=== PATIENT | male | born 1955 | race Caucasian/White ===

== ENCOUNTER 2025-01-04 11:58 | Emergency (ER) | payer MEDICARE, SELFPAY ==
--- NOTE | 2025-01-04 12:03 | EKG_ITS ---
[facility] Test Date: 2025-01-04 Pat Name: THUY SWAIN Department: Room: - Gender: Male Code Inspector: : [id number] Requested By: ED Temporary Provider Order Number: [id number] Reading MD: ED Temporary Provider Measurements Intervals [place] Rate: 75 P: 67 KS: 150 QRS: -50 QRSD: 169 T: 100 QT: 427 QTc: 480 Interpretive Statements SINUS RHYTHM POSSIBLE LEFT ATRIAL ENLARGEMENT [-0.1mV P-WAVE IN V1/V2] LEFT AXIS DEVIATION [QRS AXIS < -30] LEFT BUNDLE BRANCH BLOCK [120+ ms QRS DURATION, 80+ ms Q/S IN V1/V2, 85+ ms R IN I/aVL/V5/V6] Compared to ECG 02/29/2024 15:10:09 No significant changes /store/S0/[id number]/ecg/[id number].pdf
[2025-01-04 12:28] VITALS: BP 126/84; PULSE 77; RESP 17; TEMP 36.4; O2SAT 95
--- NOTE | 2025-01-04 12:34 | XR_ITS ---
Examination: PA lateral chest 2 views Technique: Upright PA lateral chest 2 views Date and time: January 04, 2025 1236 hrs. Indications: Coughing shortness of breath beginning 3 days ago. Findings: Normal heart size Moderate hyperexpansion. Suspicious for early right base pneumonia Impression: Suspicious for early right base pneumonia
--- NOTE | 2025-01-04 12:35 | PD.EDRME ---
Rapid Medical Screening Exam [facility] Arrival date/time: 01/04/25 11:58 This is a 69-year-old male comes into the emergency room complaints. Patient states he was given antibiotics, Rocephin shot yesterday and his primary doctor's office. Patient states that he did not feel better. Patient did not start outpatient p.o. treatment of antibiotics. Patient's reports that he feels severely malnourished and weak. He states that he thinks he needs IV therapy for hydration. Patient reports that over the past month he has lost about 35 pounds. I have greeted and performed a focused initial assessment of this patient. Initial appropriate labs ordered at this time. A comprehensive ED assessment and evaluation of the patient and analysis of all test and completion of medical decision making process will be conducted by additional ED provider. Chief Complaint: Flu Like Symptoms Time Seen by Provider: 01/04/25 12:09 Vital signs: Vital Signs Temperature 97.6 F 01/04/25 12:28 Pulse Rate 77 01/04/25 12:28 Respiratory Rate 17 01/04/25 12:28 Blood Pressure 126/84 01/04/25 12:28 Pulse Oximetry (%) 95 01/04/25 12:28 Oxygen Delivery Method Room Air 01/04/25 12:28
[2025-01-04 13:12] LABS: Lactate (Lactic Acid) 1.4 mMol/L (0.4-2.0)
[2025-01-04 13:14] LABS: Basophils # (Auto) 0.0 Thou/mm3 (0.0-0.2); Basophils % (Auto) 0 % (0-2.5); Eosinophils # (Auto) 0.1 Thou/mm3 (0.0-0.5); Eosinophils % (Auto) 1 % (0-10); Hematocrit 46.8 % (41.0-53.0); Hemoglobin 15.7 g/dL (13.5-16.0); Immature Granulocytes Auto 0.04 Thou/mm3 (0.00-0.00); Lymphocytes # (Auto) 0.9 Thou/mm3 (1.0-4.8); Lymphocytes % (Auto) 8 % (10-50); Mean Corpuscular HGB Conc 33.5 g/dl (31.0-37.0); Mean Corpuscular Hemoglobin 29.7 pg (25.0-35.0); Mean Corpuscular Volume 89 fL (80-100); Monocytes # (Auto) 1.0 Thou/mm3 (0.0-0.8); Monocytes % (Auto) 9 % (0-12); Neutrophils # (Auto) 9.0 Thou/mm3 (1.8-7.7); Neutrophils % (Auto) 81 % (37-80); Nucleated Red Blood Cell # 0.00 Thou/mm3 (0.00-0.00); Nucleated Red Blood Cell % 0 /100 WBC (0); Platelet Count 130 Thou/mm3 (140-440); RDW Standard Deviation 43.0 fL (35.1-43.9); Red Blood Count 5.28 Miln/mm3 (4.50-5.90); White Blood Count 11.1 Thou/mm3 (3.8-10.6)
[2025-01-04 13:57] LABS: Alanine Aminotransferase 9 U/L (10-49); Albumin, Serum 4.3 gm/dL (3.4-4.8); Albumin/Globulin Ratio 1.4 (1.2-2.2); Alkaline Phosphatase 80 U/L (46-116); Anion Gap 11 (7-16); Aspartate Amino Transferase 19 U/L (0-34); BUN/Creatinine Ratio 15 Ratio (12-20); Bilirubin,Total 0.8 mg/dL (0.3-1.2); Blood Urea Nitrogen 18 mg/dL (9-23); Calcium 9.1 mg/dL (8.3-10.6); Calcium (Corrected) 9.1 mg/dL (8.5-10.1); Carbon Dioxide 27.4 mMol/L (20.0-31.0); Chloride 103 mMol/L (98-107); Creatinine (Component) 1.2 mg/dL (0.6-1.3); Estimated Creatinine Clearance 51.4 mL/min (>60); Globulin 3.1 gm/dL (2.3-3.5); Glucose 104 mg/dL (74-106); Osmolality,Calculated 283 (275-295); Potassium 3.5 mMol/L (3.4-5.1); Procalcitonin 0.13 ng/ml (0.0-0.49); Sodium 141 mMol/L (136-145); Total Protein 7.4 gm/dL (5.7-8.2); eGFR > 60 See Note
[2025-01-04 15:31] VITALS: BP 100/70; PULSE 73; RESP 17; TEMP 36.3; O2SAT 98
--- NOTE | 2025-01-04 17:05 | PC.NURSE ---
called for pt from lobby/outside, no answerx1@ [id number]
--- NOTE | 2025-01-04 17:19 | PC.NURSE ---
called for pt from lobby/outside, no answerx2@ [id number]
--- NOTE | 2025-01-04 17:31 | PC.NURSE ---
called for pt from lobby/outside, no answer x3 @[phone]
== END 2025-01-04 17:52 | disposition left against medical advice (07) ==
PROVIDERS: Emergency Provider Nurse Practitioner Family
DX: R53.1 Weakness (principal); I44.7 Left bundle-branch block, unspecified; Z53.29 Procedure and treatment not carried out because of patient's decision for other reasons; R63.4 Abnormal weight loss; Z68.20 Body mass index [BMI] 20.0-20.9, adult
CPT/HCPCS: 36415; 71046; 80053; 81001; 83605; 84145; 85025; 87040; 93005; 99284